=== PATIENT | male | born 1960 | race Caucasian/White ===

== ENCOUNTER 2016-07-08 09:33 | Emergency (ER) | payer BC ==
[~2016-07-08] VITALS: Ht 177.8 cm; Wt 89.5 kg
[~2016-07-08 09:33] MED LIST: PERCOCET 5/31 TABLET PO
[2016-07-08 10:28] LABS: HEMATOCRIT 39.9 % (38.0-50.0); MCHC 34.1 G/DL (30.0-36.0); MCV 90.9 FL (86-99); MEAN PLAT.VOLUME 10.6 uM^3 (9.0-12.4); PLATELET COUNT 257 K/uL (156-360); RBC DIS.WIDTH-CV 11.6 % (11.8-14.6); RED BLOOD COUNT 4.39 M/uL (4.00-5.50); WHITE BLOOD COUNT 6.9 K/uL (4.1-10.2)
[2016-07-08 10:46] LABS: CHLORIDE 103 mEq/L (99-109); POTASSIUM 4.6 mEq/L (3.7-5.4); SODIUM 138 mEq/L (136-147)
[2016-07-08 10:48] LABS: GLUCOSE 105 mg/dL (70-99)
[2016-07-08 10:50] LABS: ANION GAP 10 MEQ/L (2-14)
[2016-07-08 10:53] LABS: UREA NITROGEN (BUN) 13 mg/dL (9-23)
[2016-07-08] MEDS ORDERED: HYDROCHLOROTHIA25 MG PO (10:53)
[2016-07-08] MEDS ORDERED: ATENOLOL50 MG PO (10:53)
[2016-07-08] MEDS ORDERED: LISINOPRIL40 MG PO (10:53)
[2016-07-08] MEDS ORDERED: ALEVE220 M2 PO (10:54)
[2016-07-08 11:01] LABS: TOTAL BILIRUBIN 1.1 mg/dL (0.0-1.0)
[2016-07-08 11:02] LABS: ALKALINE PHOSPHATASE 52 IU/L (3-129)
[2016-07-08 11:03] LABS: GFR ESTIMATE (CALCULATED) > 59 mL/min/
[2016-07-08 11:05] LABS: DIRECT BILIRUBIN 0.4 mg/dL (0.0-0.3)
[2016-07-08 11:06] LABS: LIPASE 39 U/L (1.0-51.0)
[2016-07-08 12:07] LABS: ADD MIUA? NO; BILIRUBIN NEGATIVE; BLOOD NEGATIVE; COLOR YELLOW ((YELLOW)); GLUCOSE (STRIP) NEGATIVE; KETONES NEGATIVE; LEUKOCYTES NEGATIVE; NITRITE NEGATIVE; PROTEIN (STRIP) NEGATIVE; SPECIFIC GRAVITY 1.016 (1.000-1.030); UCUL ADDED? NO; UROBILINOGEN 0.2 MG/DL (0.2-1.0)
[2016-07-08] MEDS ORDERED: ZOFRAN ODT4 MG PO (12:11)
[2016-07-08 12:42] VITALS: BP 150/99
== END 2016-07-08 12:43 | disposition home or self-care (01) ==
LOC: EME 09:33
DX: R11.2 Nausea with vomiting, unspecified (principal); R19.7 Diarrhea, unspecified; R05 Cough; I10 Essential (primary) hypertension
CPT/HCPCS: 71020; 80048; 80076; 81003; 83690; 85027; 87493; 87506; 99281; 99285; J1885; J7030

== ENCOUNTER 2017-04-05 11:53 | Emergency (ER) | payer BC, OTHER ==
[~2017-04-05] VITALS: Ht 180.3 cm; Wt 87.0 kg
[~2017-04-05 11:53] MED LIST changes: +ALEVE220 M2 PO; +ATENOLOL50 MG PO; +HYDROCHLOROTHIA25 MG PO; +LISINOPRIL40 MG PO; +ZOFRAN ODT4 MG PO
[2017-04-05] MEDS ORDERED: MOTRIN600 MG PO (14:51)
[2017-04-05 15:32] VITALS: BP 124/98
== END 2017-04-05 15:34 | disposition home or self-care (01) ==
LOC: EME 11:53
DX: M75.41 Impingement syndrome of right shoulder (principal)
CPT/HCPCS: 73030; 99281; 99283